=== PATIENT | male | born 1990 | race Asian ===

== ENCOUNTER 2016-09-21 17:18 | Inpatient (IN) | payer OTHER ==
[~2016-09-21] VITALS: Ht 165.1 cm; Wt 78.9 kg
[2016-09-21 17:18] VITALS: BP_SYST 124
--- NOTE | 2016-09-21 17:20 | NUR ---
Pt placed to ER bed 07, report given to FREEDOM Tavera.
[2016-09-21] MEDS ORDERED: PROCHLORPERAZINE EDISYLATE 10 MG/2 ML VIAL IM ONE (17:30)
[2016-09-21] MEDS ORDERED: MAG HYDROX/AL HYDROX/SIMETH 30 ML, BELLADONNA ALKALOIDS/PHENOBARB 10 ML, LIDOCAINE VISC... PO ONE ×3 (17:30)
[2016-09-21] MEDS ORDERED: PANTOPRAZOLE SODIUM 40 MG TAB PO ONE (17:30)
--- NOTE | 2016-09-21 17:30 | NUR ---
Patient came in with abdomen pain 10/07, sharp since yesterday at 3pm. Patient states that he was feeling fine and then after he ate at [employer] he started having. Patient stated that he couldn't sleep last night due to the pain. no injuries/complaints per patient/noted
--- NOTE | 2016-09-21 17:40 | NUR ---
Dr. Rosario at bedside examining the pt.
[2016-09-21 17:43] LABS: BASOPHILS # (AUTO) 0.1 K/uL (0.0-0.2); BASOPHILS % (AUTO) 0.7 % (0.0-2.0); EOSINOPHILS # (AUTO) 0.1 K/uL (0.0-0.4); EOSINOPHILS % (AUTO) 1.3 % (0.0-4.0); HEMATOCRIT 45.1 % (36-54); HEMOGLOBIN 14.9 g/dL (14.0-18.0); LYMPHOCYTES # (AUTO) 1.5 K/uL (1.0-5.5); LYMPHOCYTES % (AUTO) 21.3 % (20.5-51.5); MEAN CORPUSCULAR HEMOGLOBIN 29 pg (27-31); MEAN CORPUSCULAR HGB CONC 33 % (32-36); MEAN CORPUSCULAR VOLUME 88 fL (79.0-98.0); MONOCYTES # (AUTO) 0.6 K/uL (0.0-1.0); NEUTROPHILS % (AUTO) 68.7 % (40.0-70.0); PLATELET COUNT (AUTO) 348 K/uL (130-430); RED BLOOD CELL COUNT(AUTO) 5.11 MIL/uL (4.2-6.2); RED CELL DISTRIBUTION WIDTH 13.7 % (9.0-15.0); WHITE BLOOD COUNT (AUTO) 7.3 K/uL (4.8-10.8)
--- NOTE | 2016-09-21 18:16 | NUR ---
as per pt. he is no longer in pain verbalizes comfort, dr. Rosario speaking to the pt. about his stay at the hospital
[2016-09-21 18:17] LABS: CALCIUM 9.7 mg/dL (8.4-11.0); CREATININE 1.08 mg/dL (0.55-1.30); POTASSIUM 3.9 mmol/L (3.5-5.1)
[2016-09-21 18:21] LABS: ALBUMIN 4.5 g/dL (3.4-4.8); TOTAL BILIRUBIN 4.8 mg/dL (0.0-1.0); TOTAL PROTEIN, SERUM 8.7 g/dL (6.4-8.3)
[2016-09-21] MEDS ORDERED: NACL 0.9% 1,000 ML IV ONE (18:59)
[2016-09-21] MEDS ORDERED: MORPHINE 2 MG/ML INJ. SYRINGE IVP ONE (19:00)
[2016-09-21] MEDS ORDERED: PIPERACILLIN/TAZO 3.375 GM in NS 50 ML IV ONE (19:15)
[2016-09-21] MEDS ORDERED: PIPERACILLIN/TAZOBACTAM 3.375 GM/VIAL (ZOSYN) IV ONE (19:28)
[2016-09-21] MEDS ORDERED: LITH300C2 PO (19:46)
--- NOTE | 2016-09-21 19:47 | NUR ---
medication reconciliation completed as stated by pt.
--- NOTE | 2016-09-21 20:00 | NUR ---
US at bedside
--- NOTE | 2016-09-21 21:05 | NUR ---
Patient will be admitted to care of DR. GREEN. Admitted to MED SURG unit. Will go to room 135. Belongings list completed. Summary report printed. Report will be given at bedside.
--- NOTE | 2016-09-21 21:14 | NUR ---
ADMISSION NOTE Received patient from ER via [facility], received report from ALEX LOJA. Patient admitted with diagnosis of CHOLECYSTISTIS. Patient oriented to hospital routine, call light, toileting and safety-patient verbalized understanding.
[2016-09-21 21:16] VITALS: BP_SYST 125
[2016-09-21] MEDS ORDERED: ONDANSETRON HCL 4 MG/2 ML VIAL IVP PRN (22:15)
--- NOTE | 2016-09-21 22:15 | NUR ---
RECEIVED REPORT RECEIVED REPORT FROM RN AT BEDSIDE.
--- NOTE | 2016-09-21 22:30 | NUR ---
OPENING NOTE PATIENT IS AOX4, SITTING UP IN BED, RESTING COMFORTABLY. PATIENT DENIES PAIN. RESPIRATIONS EVEN AND UNLABORED. FALL PRECAUTIONS IN PLACE, WILL CONTINUE TO MONITOR. CALL LIGHT WITHIN REACH.
--- NOTE | 2016-09-21 22:37 | NUR ---
HANDOFF REPORT GIVEN TO ROHITH LOJA,PATIENT IN STABLE CONDITION.
[2016-09-21] MEDS: D5LR 1,000 ML IV SCH (22:55)
[2016-09-21] MEDS: LITHIUM CARBONATE 300 MG TABLET.SA PO SCH (22:55)
--- NOTE | 2016-09-21 23:36 | NUR ---
Consult Called Reason for consultation: Elevated Liver Enzymes Consulting Physician: Dr. Kate Concrete Wall Grinder Operator Order by Dr. Mariano Spoke with Marjorie
[2016-09-21 23:55] VITALS: BP_SYST 112
--- NOTE | 2016-09-22 | NUR ---
HANDOFF REPORT REPORT GIVEN TO RN, ENDORSED CARE.
--- NOTE | 2016-09-22 00:05 | NUR ---
RN NOTED: REPORT RECEIVED FROM RN
--- NOTE | 2016-09-22 00:15 | NUR ---
RN ROUNDS: PT IS SLEEPING , COMFORTABLE ; IV FLUID IS INFUSING WELL .
--- NOTE | 2016-09-22 01:18 | NUR ---
RN NOTES: PT IS AWAKE, PROVIDED URINE SAMPLE BOTTLE AND EXPLAINED PROCEDURE TO THE PT .
--- NOTE | 2016-09-22 03:20 | NUR ---
RN ROUNDS: PT IS SLEEPING , NOT IN ANY ACUTE DISTRESS; WILL CONTINUE TO MONITOR.
[2016-09-22 04:19] VITALS: BP_SYST 126
--- NOTE | 2016-09-22 05:30 | NUR ---
RN ROUNDS: PT IS SLEEPING, NOT IN ANY ACUTE DISTRESS; WILL CONTINUE TO MONITOR.
[2016-09-22 05:34] LABS: BILIRUBIN,URINE 2+ (NEGATIVE); BLOOD, URINE NEGATIVE (NEGATIVE); CLARITY/URINE CLEAR (CLEAR); COLOR,URINE YELLOW (YELLOW); GLUCOSE,URINE NEGATIVE (NEGATIVE); KETONES,URINE NEGATIVE (NEGATIVE); LEUKOCYTE ESTERASE ,URINE NEGATIVE (NEGATIVE); NITRITE, URINE NEGATIVE (NEGATIVE); PH,URINE 5.5 (5.0-8.0); PROTEIN URINE NEGATIVE (NEGATIVE); UROBILINOGEN,URINE 0.2 (0.2-1.0)
[2016-09-22 06:04] LABS: BACTERIA,URINE FEW /HPF (None Seen); MUCUS,URINE 1+ /LPF (None Seen); RBC,URINE 0-3 /HPF (0-3); WBC,URINE 0-3 /HPF (0-3)
--- NOTE | 2016-09-22 06:56 | NUR ---
CLOSING NOTES: PT IS AWAKE, NOT IN ANY ACUTE DISTRESS; NPO FOR HIDA SCAN ; WILL CONTINUE TO MONITOR AND WILL ENDORSE TO NEXT SHIFT NURSE.
[2016-09-22 07:28] LABS: BASOPHILS # (AUTO) 0.1 K/uL (0.0-0.2); BASOPHILS % (AUTO) 0.8 % (0.0-2.0); EOSINOPHILS # (AUTO) 0.2 K/uL (0.0-0.4); EOSINOPHILS % (AUTO) 2.7 % (0.0-4.0); HEMATOCRIT 41.1 % (36-54); HEMOGLOBIN 13.5 g/dL (14.0-18.0); LYMPHOCYTES # (AUTO) 2.1 K/uL (1.0-5.5); LYMPHOCYTES % (AUTO) 26.5 % (20.5-51.5); MEAN CORPUSCULAR HEMOGLOBIN 30 pg (27-31); MEAN CORPUSCULAR HGB CONC 33 % (32-36); MEAN CORPUSCULAR VOLUME 90 fL (79.0-98.0); MONOCYTES # (AUTO) 0.6 K/uL (0.0-1.0); MONOCYTES % (AUTO) 7.7 % (1.7-9.3); NEUTROPHILS # (AUTO) 4.9 K/uL (1.8-7.7); NEUTROPHILS % (AUTO) 62.3 % (40.0-70.0); PLATELET COUNT (AUTO) 315 K/uL (130-430); RED BLOOD CELL COUNT(AUTO) 4.57 MIL/uL (4.2-6.2); RED CELL DISTRIBUTION WIDTH 13.4 % (9.0-15.0); WHITE BLOOD COUNT (AUTO) 7.9 K/uL (4.8-10.8)
[2016-09-22 07:35] LABS: ALBUMIN 3.6 g/dL (3.4-4.8); BILIRUBIN,DIRECT 0.5 mg/dL (0.0-0.3); CALCIUM 8.8 mg/dL (8.4-11.0); CREATININE 1.08 mg/dL (0.55-1.30); POTASSIUM 3.9 mmol/L (3.5-5.1); TOTAL BILIRUBIN 1.5 mg/dL (0.0-1.0); TOTAL PROTEIN, SERUM 7.3 g/dL (6.4-8.3)
[2016-09-22 07:43] LABS: PROTHROMBIN TIME 10.7 SECS (9.5-12.5)
[2016-09-22 08:00] VITALS: BP_SYST 134
--- NOTE | 2016-09-22 08:00 | NUR ---
OPENING NOTE PATIENT IS AWAKE, ALERT. CALM AND PLEASANT AFFECT. DENIES ANY PAIN AT THIS TIME, VITALS WNL.
--- NOTE | 2016-09-22 09:45 | NUR ---
PATIENT MEDICATED PER ORDERS. PER [facility] TECH PATIENT OK TO TAKE LITHIUM W SIPS OF WATER AND [facility] SCHEDULED FOR THE AFTERNOON
[2016-09-22] MEDS: LITHIUM CARBONATE 300 MG TABLET.SA PO SCH (09:46)
[2016-09-22 09:53] LABS: ERYTHROCYTE SEDIMENTATION RATE 5 MM/HR (0-15)
[2016-09-22 11:33] VITALS: BP_SYST 111
[2016-09-22] MEDS: D5LR 1,000 ML IV SCH (11:46)
--- NOTE | 2016-09-22 13:35 | NUR ---
PATIENT TAKEN FOR [facility] VIA W/C
--- NOTE | 2016-09-22 15:25 | NUR ---
PATIENT RETURNED FROM [facility]
--- NOTE | 2016-09-22 15:40 | NUR ---
DR GREEN IN TO SEE PATIENT
[2016-09-22 15:57] VITALS: BP_SYST 114
[2016-09-22 16:05] VITALS: BP_SYST 132
--- NOTE | 2016-09-22 16:21 | NUR ---
DISCHARGE IV DC'D AND PRESSURE DRESSING APPLIED. PATIENT GIVEN DC INSTRUCTIONS AND FOLLOW UP CARE. ALL BELONGINGS ACCOUNTED FOR. PATIENT GIVEN DINNER TRAY AND ADVISED TO EAT AND GET DRESSED AND I WILL TAKE HIM TO HIS VEHICLE WHEN HE IS READY. PATIENT VERBALIZED UNDERSTANDING OF ALL INFORMATION GIVEN AND INSTRUCTIONS. REPORTS NO PAIN NOW.
[2016-09-23 13:10] LABS: HEPATITIS A AB, IgM Negative (Negative); HEPATITIS B CORE AB, IgM Negative (Negative); HEPATITIS B SURFACE AG Negative (Negative)
== END 2016-09-22 16:21 | disposition home or self-care (01) ==
LOC: SED 17:18 → SMU 21:03
PROVIDERS: ADMIT Internal Medicine; ATTEND Internal Medicine
DX: B17.9 Acute viral hepatitis, unspecified (principal); F31.9 Bipolar disorder, unspecified; R74.8 Abnormal levels of other serum enzymes
CPT/HCPCS: 36415; 74181; 76705; 78226; 80048; 80053; 80074; 80076; 80178-TC; 81000-TC; 83690-TC; 85025; 85610-TC; 85651-TC; 85730-TC; 86705; 86709; 87340; 96365; 96372; 96375; 99285; A9537; J0780; J2001; J2270; J2543; J7030; J7120